=== PATIENT | male | born 1955 | race Caucasian/White ===

== ENCOUNTER → 2022-06-04 | Outpatient (CLI) | payer OTHER ==
--- NOTE | 2022-06-04 18:05 | Diagnostic Imaging Report ---
EXAMINATION: Left knee radiographs, 3 views. COMPARISON: None. HISTORY: 66-year-old male, left knee pain and swelling. FINDINGS: There is no identified acute fracture. There is no knee joint effusion. The joint spaces are well-preserved. There is no knee joint effusion. IMPRESSION: 1. Unremarkable radiographs of the left knee. Dictated by: Dictated on workstation # [id number]
== END ==
LOC: RAD FS 14:48
PROVIDERS: ATTEND Student in an Organized Health Care Education/Training Program
DX: M25.462 Effusion, left knee (principal); M25.562 Pain in left knee
CPT/HCPCS: 73562